=== PATIENT | female | born 1960 | race Caucasian/White ===

== ENCOUNTER → 2016-05-01 | Outpatient (CLI) | payer OTHER | LOC: MC.RAD 10:19 | DX: N63 Unspecified lump in breast (principal) ==

== ENCOUNTER → 2016-05-02 | Outpatient (CLI) | payer OTHER | LOC: MC.RAD 13:59 | DX: D24.1 Benign neoplasm of right breast (principal) ==

== ENCOUNTER → 2016-12-24 | Outpatient (CLI) | payer OTHER | LOC: MC.RAD 07:30 | DX: R92.0 Mammographic microcalcification found on diagnostic imaging of breast (principal) ==

== ENCOUNTER → 2017-05-02 | Outpatient (CLI) | payer OTHER | LOC: MC.RAD 07:34 | DX: Z12.31 Encounter for screening mammogram for malignant neoplasm of breast (principal); R92.0 Mammographic microcalcification found on diagnostic imaging of breast ==

== ENCOUNTER → 2017-05-08 | Outpatient (CLI) | payer OTHER | LOC: MC.RAD 06:52 | DX: N63.14 Unspecified lump in the right breast, lower inner quadrant (principal); R92.0 Mammographic microcalcification found on diagnostic imaging of breast ==

== ENCOUNTER → 2017-05-14 | Outpatient (CLI) | payer OTHER | LOC: MC.RAD 07:24 | DX: N63.10 Unspecified lump in the right breast, unspecified quadrant (principal) ==

== ENCOUNTER 2017-05-28 06:52 | Day surgery (SDC) | payer OTHER ==
[~2017-05-28] VITALS: Ht 160 cm; Wt 75.2 kg
[2017-05-28] MEDS ORDERED: LEXAPRO 10MG10 MG PO (08:14)
[2017-05-28] MEDS ORDERED: PREMPRO 0.3 MG-1 TAB PO (08:15)
[2017-05-28] MEDS ORDERED: EXCEDRIN1 TAB PO (08:16)
[2017-05-28] MEDS ORDERED: ADDERALL5 MG PO (08:16)
[2017-05-28 08:54] VITALS: BP 124/77; PULSE 77; TEMP 98.1
[2017-05-28] MEDS ORDERED: NORCO 325 MG-51 TAB PO (10:09)
[2017-05-28 10:14] VITALS: BP 107/67; PULSE 77; TEMP 97.8
[2017-05-28 10:30] VITALS: BP 106/72; PULSE 80
== END 2017-05-28 11:05 | disposition home or self-care (01) ==
LOC: SDCO 06:52
DX: N60.91 Unspecified benign mammary dysplasia of right breast (principal); R92.0 Mammographic microcalcification found on diagnostic imaging of breast; F32.9 Major depressive disorder, single episode, unspecified; G43.909 Migraine, unspecified, not intractable, without status migrainosus; Z90.49 Acquired absence of other specified parts of digestive tract; Z80.42 Family history of malignant neoplasm of prostate; Z80.0 Family history of malignant neoplasm of digestive organs; Z88.1 Allergy status to other antibiotic agents
CPT/HCPCS: J0690; J1885; J2704; J3010; J7120

== ENCOUNTER → 2018-07-03 | Outpatient (CLI) | payer OTHER ==
[~2018-07-03] MED LIST: ADDERALL5 MG PO; EXCEDRIN1 TAB PO; LEXAPRO 10MG10 MG PO; NORCO 325 MG-51 TAB PO; PREMPRO 0.3 MG-1 TAB PO
== END ==
LOC: MC.RAD 06:49
DX: Z12.31 Encounter for screening mammogram for malignant neoplasm of breast (principal); Z98.82 Breast implant status

== ENCOUNTER 2019-05-12 14:00 | Outpatient (RCR) | payer OTHER | END 2019-07-01 13:52 | disposition home or self-care (01) | LOC: WSC 14:00 | DX: M16.11 Unilateral primary osteoarthritis, right hip (principal) ==

== ENCOUNTER 2022-12-13 15:58 | Outpatient (CLI) | payer OTHER ==
[~2022-12-13] VITALS: Ht 160 cm; Wt 76.4 kg
[2022-12-13 16:15] VITALS: BP 117/78; PULSE 72; TEMP 97.8
== END 2022-12-13 16:53 | disposition home or self-care (01) ==
LOC: EUO 15:58
DX: M81.0 Age-related osteoporosis without current pathological fracture (principal)
CPT/HCPCS: J0897

== ENCOUNTER 2023-12-27 14:44 | Outpatient (CLI) | payer MEDICARE ==
[~2023-12-27] VITALS: Ht 160 cm; Wt 70.5 kg
[2023-12-27] MEDS ORDERED: Denosumab 60 MG/ML SYRINGE SQ ONE (15:00)
[2023-12-27 15:07] VITALS: BP 113/74; PULSE 66; TEMP 97.9
[2023-12-27] MEDS ORDERED: DESYREL 50MG50 MG PO (15:12)
== END 2023-12-27 15:18 | disposition home or self-care (01) ==
LOC: EUO 14:44
DX: M81.0 Age-related osteoporosis without current pathological fracture (principal)
CPT/HCPCS: J0897